=== PATIENT | female | born 1965 | race Caucasian/White ===

== ENCOUNTER 2022-08-08 08:07 | Emergency (ER) | payer OTHER ==
[~2022-08-08] VITALS: Ht 154.9 cm; Wt 69.5 kg
[2022-08-08 08:33] VITALS: BP 162/78
[2022-08-08 09:28] LABS: Basophils # (auto) 0.1 10 ^3/uL (0-0.2); Basophils % (auto) 1.1 % (0.0-2.0); Eosinophils # (auto) 0.2 10 ^3/uL (0-0.8); Eosinophils % (auto) 2.9 % (0.0-7.0); Hematocrit 43.6 % (36.0-46.0); Hemoglobin 14.6 g/dL (12.2-16.2); Lymphocytes # (auto) 1.9 10 ^3/uL (0.4-5.4); Mean Corpuscular Hemoglobin 30.9 pg (28.0-32.0); Mean Corpuscular Hgb Conc. 33.4 g/dL (32.0-36.0); Mean Corpuscular Volume 92.5 fL (80.0-100.0); Monocytes # (auto) 0.4 10 ^3/uL (0-1.3); Monocytes % (auto) 5.6 % (0.0-12.0); Neutrophils # (auto) 4.6 10 ^3/uL (1.6-8.6); Neutrophils % (auto) 64.4 % (37.0-80.0); Red Blood Cells 4.71 10^6/uL (4.0-5.20); Red Cell Distribution Width 12.5 % (11.8-14.3); White Blood Cell 7.2 10^3/uL (4.4-10.8)
[2022-08-08 10:50] LABS: Albumin 4.1 g/dL (3.4-5.0); Calcium 9.7 mg/dL (8.5-10.1); Potassium 3.5 mmol/L (3.5-5.1)
[2022-08-08 10:51] LABS: BUN/Creatinine Ratio 25.8
[2022-08-08 10:54] LABS: Bilirubin, Total 0.4 mg/dL (0.2-1.0)
[2022-08-08] MEDS ORDERED: KETOROLAC TROMETH 30 MG/ML 1ML VIAL IV ONE (11:15)
[2022-08-08] MEDS ORDERED: SODIUM CHLORIDE 0.9% 1,000 ML IV ONE (11:15)
[2022-08-08 11:30] LABS: Urine Bacteria NONE SEEN /hpf (None Seen); Urine Blood Negative /uL (Negative); Urine Specific Gravity 1.012 (1.001-1.035); Urine WBC 18 /hpf (0 - 5)
[2022-08-08] MEDS ORDERED: NITR-87 PO (12:31)
[2022-08-08] MEDS ORDERED: DICL50TA2 PO (12:31)
[2022-08-08] MEDS ORDERED: CYCL-837 PO (12:31)
== END 2022-08-08 12:46 | disposition home or self-care (01) ==
LOC: ER 08:07
DX: R07.89 Other chest pain (principal); N39.0 Urinary tract infection, site not specified; I10 Essential (primary) hypertension; G89.29 Other chronic pain; M54.9 Dorsalgia, unspecified
CPT/HCPCS: 36415; 71046; 80053; 81001; 83735; 84443; 84484; 85025; 93005; 96374; 99285; J1885

== ENCOUNTER 2024-12-07 23:29 | Emergency (ER) | payer OTHER ==
[~2024-12-07] VITALS: Ht 160 cm; Wt 65.0 kg
[~2024-12-07 23:29] MED LIST: CYCL-837 PO; DICL50TA2 PO; NITR-87 PO
[2024-12-08] MEDS ORDERED: SODIUM CHLORIDE 0.9% 1,000 ML IV ONE
[2024-12-08 00:16] VITALS: BP 149/83; PULSE 89; RESP 20; TEMP 99.6; O2SAT 96
--- NOTE | 2024-12-08 01:12 | ED.PDOC ---
History of Present Illness HPI Comments This patient is a 59-year-old female who arrives the ED today with concerns of an elevated blood sugar event tonight. Patient has multiple comorbidities as well as some autoimmune concerns. Patient consistently resides in a hypoglycemic state due to her autoimmune concerns. Patient arrives with a concerns that her blood glucose was at 2:45 a.m. earlier. Patient denies any symptoms related to the event. Patient states she utilize a [place] as well as a Ambien and feels a little bit spacey. Patient had an elevated temperature and mildly hypertensive on arrival. Chief Complaint: Dizziness Time Seen by MD: 23:39 Reviewed Notes: Nurses Notes Allergies: Coded Allergies: Amoxicillin (Verified Allergy, Severe, 12/08/24) Home Meds Active Scripts Nitrofurantoin Monohydrate Mac (Macrobid) 100 Mg Cap, 100 MG PO BID for 7 Days, #14 CAP Prov:CORRIE JO MD 08/08/22 Cyclobenzaprine Hcl (Cyclobenzaprine Hcl) 5 Mg Tab, 1 TAB PO TID for 10 Days, #30 TAB Prov:CORRIE JO MD 08/08/22 Diclofenac Potassium (Diclofenac Potassium) 50 Mg Tab, 1 TAB PO TIDP for 10 Days, #30 TAB Prov:CORRIE JO MD 08/08/22 Information Source: Patient Mode of Arrival: Ambulatory Severity: Moderate Timing: Hours Duration: Since onset Prehospital treatment: None Past Medical History PAST MEDICAL HISTORY: HTN Past Medical History (Other): Multiple autoimmune concerns Surgical History: Denies all surgeries [employer] History: Denies all [employer] Hx Family History Family History: Reviewed,noncontributory to illness Social History Smoker: Non-Smoker Alcohol: Denies ETOH Use Drugs: Denies Drug Use Lives In: Home Constitutional: denies: chills, diaphoresis, fatigue, fever, malaise, sweats, weakness, others EENTM: denies: blurred vision, double vision, ear bleeding, ear discharge, ear drainage, ear pain, ear ringing, eye pain, eye redness, hearing loss, mouth pain, mouth swelling, nasal discharge, nose bleeding, nose congestion, nose pain, photophobia, tearing, throat pain, throat swelling, voice changes, others Respiratory: denies: cough, hemoptysis, orthopnea, SOB at rest, shortness of breath, SOB with excertion, stridor, wheezing, others Cardiovascular: denies: chest pain, dizzy spells, diaphoresis, Dyspnea on exertion, edema, irregular heart beat, left arm pain, lightheadedness, palpitations, PND, syncope, others Gastrointestinal: denies: abdomen distended, abdominal pain, blood streaked bowels, constipated, diarrhea, dysphagia, difficulty swallowing, hematemesis, melena, nausea, poor appetite, poor fluid intake, rectal bleeding, rectal pain, vomiting, others Genitourinary: denies: abnormal vagina bleeding, burning, dyspareunia, dysuria, flank pain, frequency, hematuria, incontinence, pain, , vagina discharge, urgency, others Neurological: denies: dizziness, fainting, headache, left sided numbness, left sided weakness, numbness, paresthesia, pre-existing deficit, right sided numbness, right sided weakness, seizure, speech problems, tingling, tremors, weakness, others Musculoskeletal: denies: back pain, gout, joint pain, joint swelling, muscle pain, muscle stiffness, neck pain, others Integumetry: denies: bruises, change in color, change in hair/nails, dryness, laceration, lesions, lumps, rash, wounds, others Allergic/Immunocompromised: denies: Difficulty Healing, Frequent Infections, Hives, Itching, others Hematologic/Lymphatic: denies: anemia, blood clots, easy bleeding, easy bruising, swollen glands, others Endocrine: denies: excessive hunger, excessive sweating, excessive thirst, excessive urination, flushing, intolerance to cold, intolerance to heat, unexplained weight gain, unexplained weight loss, others Psychiatric: denies: anxiety, bipolar disorder, depression, hopeless, panic disorder, schizophrenia, sleepless, suicidal, others Physical Exam General Appearance: Mild Distress (Patient has mild discomfort due to musculoskeletal concerns related to prior injuries. Patient has some anxiety related to her hyperglycemic state.), Normal HEENT: Normal ENT Inspection, Pharynx Normal, TMs Normal Neck: Full Range of Motion, Non-Tender, Normal, Normal Inspection Respiratory: Chest Non-Tender, Lungs Clear, No Accessory Muscle Use, No Respiratory Distress, Normal Breath Sounds Cardiovascular: No Edema, No JVD, No Murmur, No Gallop, Normal Peripheral Pulses, Regular Rate/Rhythm Breast Exam: Deferred Gastrointestinal: No Organomegaly, Non Tender, No Pulsatile Mass, Normal Bowel Sounds, Soft Genitalia: Deferred Pelvic: Deferred Rectal: Deferred Extremities: No calf tenderness, Normal capillary refill, No pedal edema Neurologic: Alert, Normal Mood Cerebellar Function: NOT DONE Reflexes: NOT DONE Skin: Dry, Normal Color, Warm Lymphatic: No Adenopathy Was a procedure done? Was a procedure done?: No Differential Dx Considerations may include: Hyperglycemia, autoimmune X-Ray, Labs, Meds, VS Vital Signs Date Time Temp Pulse Resp B/P (MAP) Pulse Ox O2 Delivery O2 Flow Rate FiO2 12/08/24 00:16 99.6 89 20 149/83 (105) 96 99.6 Lab Test 12/07/24 23:51 Range/Units POC Glucose 243 H 70-106 mg/dl X-Ray, Labs, Meds, VS Comment Spent time discussing the patient's concerns with her. 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 If she can have those events, the patient has had a hyperglycemic events. I attempted to give the patient some fluids and re-evaluate once she was completed, but the patient wanted to leave the facility due to her chronic pain concerns. Patient signed an AMA form prior to leaving the campus. Time of 1ST Reevaluation: 01:11 Reevaluation 1ST: Unchanged Consultation: PCP Patient Education/Counseling: Diagnosis, Treatment Family Education/Counseling: Diagnosis, Treatment Departure 1 Departure Time of Disposition: 01:11 Impression: Primary Impression: Hyperglycemia Disposition: 07 LEFT AGAINST MEDICAL ADVICE Condition: Fair Discharged With: Self Critical Care Note Critical Care Time?: No Stability Stability form required: No Heart Score Heart Score: Heart Score Response (Comments) Value History N/A 0 EKG N/A 0 Age N/A 0 Risk Factors N/A 0 Troponin N/A 0 Total 0 JIM DELGADO PAC December 08, 2024 01:12
== END 2024-12-08 01:04 | disposition home or self-care (01) ==
LOC: ER 23:29
DX: R73.9 Hyperglycemia, unspecified (principal); R42 Dizziness and giddiness; I10 Essential (primary) hypertension; Z88.0 Allergy status to penicillin; Z98.890 Other specified postprocedural states
CPT/HCPCS: 82947; 82962